=== PATIENT | male | born 1940 | race Caucasian/White ===

== ENCOUNTER 2017-10-28 19:04 | Inpatient (IN) | payer OTHER ==
[~2017-10-28] VITALS: Ht 177.8 cm; Wt 109.6 kg
[~2017-10-28 19:04] MED LIST: ADULT LOW DOSE81 M1 PO; ADVAIR 250/501 DISK IH; CEFTIN500 MG PO; CENTRUM SILVER1 EAC3 PO; FLOMAX0.4 MG PO; IRON325 M1 PO; LIPITOR20 MG PO; NORVASC10 MG PO; NORVASC5 MG PO; OMEPRAZOLE40 M1 PO; PRILOSEC40 MG PO; SPIRIVA1 INHALATI IH; SYNTHROID100 MCG PO; TOPROL XL25 MG PO; TOPROL XL6.25 MG PO; VENTOLIN HFA18 GM IH; ZITHROMAX500 MG PO
[2017-10-28 21:23] LABS: HEMATOCRIT 29.2 % (38.0-50.0); HEMOGLOBIN 8.9 G/DL (12.5-16.6); MCH 22.3 PG (29.0-34.0); MCHC 30.5 G/DL (30.0-36.0); MCV 73.2 FL (86-99); PLATELET COUNT 293 K/uL (156-360); RBC DIS.WIDTH-CV 23.1 % (11.8-14.6); RBC DIS.WIDTH-SD 57.6 % (39-53); RED BLOOD COUNT 3.99 M/uL (4.00-5.50); WHITE BLOOD COUNT 8.5 K/uL (4.1-10.2)
[2017-10-28 21:27] LABS: ALBUMIN 3.4 g/dL (3.2-4.8)
[2017-10-28 21:28] LABS: CHLORIDE 101 mEq/L (99-109); SODIUM 135 mEq/L (136-147)
[2017-10-28 21:30] LABS: GLUCOSE 106 mg/dL (70-99); TOTAL PROTEIN 6.1 g/dL (6.4-8.3)
[2017-10-28 21:32] LABS: TOTAL BILIRUBIN 0.6 mg/dL (0.0-1.0)
[2017-10-28 21:33] LABS: ALKALINE PHOSPHATASE 87 IU/L (3-129)
[2017-10-28 21:34] LABS: CREATININE 0.7 mg/dL (0.6-1.3); GFR ESTIMATE (CALCULATED) > 59 mL/min/ (58.99-99999)
[2017-10-28 21:35] LABS: AST (GOT) 29 IU/L (2-34); TROP-I INTERPRETATION NEGATIVE; TROPONIN-I < 0.01 ng/mL (0.0-0.30); UREA NITROGEN (BUN) 11 mg/dL (9-23)
[2017-10-28 21:37] LABS: ALT (GPT) 34 IU/L (3-49)
[2017-10-28 22:03] LABS: ABS NEUTROPHIL COUNT 7.1; ANISOCYTOSIS 2+; ATYPICAL LYMPHOCYTE 0.9 %; EOSINOPHIL ABS CT 0.1; EOSINOPHILS 0.9 % (0-5.0); HYPOCHROMASIA 2+; LYMPHOCYTES 2.8 % (15.0-45.0); METAMYELOCYTES 0.9 %; MICROCYTOSIS 2+; OVALOCYTES 1+; PLAT.SUFFICIENCY ADEQUATE; POIKILOCYTOSIS 1+; POLYCHROMASIA 1+
[2017-10-28 22:05] LABS: BAND NEUTROPHILS 40.4 % (0-8.0); SEG.NEUTROPHILS 43.1 % (46.0-76.0)
[2017-10-28] MEDS ORDERED: VENTOLIN HFA18 GM IH (22:44)
[2017-10-28] MEDS ORDERED: VOLTAREN 1% GE100 GM TP (22:45)
[2017-10-28] MEDS ORDERED: METFORMIN HCL500 MG PO (22:45)
[2017-10-28] MEDS ORDERED: HYDROCODON-ACE1 EAC7 PO (22:46)
[2017-10-29 01:10] LABS: APPEARANCE CLEAR ((CLEAR)); BILIRUBIN NEGATIVE; BLOOD NEGATIVE; COLOR YELLOW ((YELLOW)); GLUCOSE (STRIP) NEGATIVE; KETONES NEGATIVE; LEUKOCYTES NEGATIVE; NITRITE NEGATIVE; PROTEIN (STRIP) 30; SPECIFIC GRAVITY 1.016 (1.000-1.030); UCUL ADDED? NO
[2017-10-29 01:49] VITALS: BP 114/54
[2017-10-29 04:40] VITALS: BP 127/60
[2017-10-29 06:37] LABS: HEMATOCRIT 27.9 % (38.0-50.0); HEMOGLOBIN 8.3 G/DL (12.5-16.6); MCH 22.1 PG (29.0-34.0); MCHC 29.7 G/DL (30.0-36.0); MCV 74.4 FL (86-99); PLATELET COUNT 245 K/uL (156-360); RBC DIS.WIDTH-CV 23.2 % (11.8-14.6); RBC DIS.WIDTH-SD 61.2 % (39-53); RED BLOOD COUNT 3.75 M/uL (4.00-5.50); WHITE BLOOD COUNT 8.4 K/uL (4.1-10.2)
[2017-10-29 06:46] LABS: CHLORIDE 102 MEQ/L (99-109); CREATININE 0.8 MG/DL (0.6-1.3); GFR ESTIMATE (CALCULATED) > 59 mL/min/ (58.99-99999); GLUCOSE 99 mg/dL (70-99); SODIUM 135 MEQ/L (136-147); UREA NITROGEN (BUN) 10 mg/dL (9-23)
[2017-10-29 08:18] VITALS: BP 129/58
[2017-10-29 11:34] VITALS: BP 140/67
[2017-10-29 15:44] VITALS: BP 150/67
[2017-10-29 18:24] LABS: INTER. NORMALIZED RATIO 1.4
[2017-10-29 20:26] VITALS: BP 104/52
[2017-10-30] VITALS (7 sets, daily range): BP systolic 112–156; BP diastolic 54–74
[2017-10-30 09:25] LABS: HEMATOCRIT 27.9 % (38.0-50.0); HEMOGLOBIN 8.1 G/DL (12.5-16.6); MCH 21.5 PG (29.0-34.0); MCV 74.2 FL (86-99); PLATELET COUNT 257 K/uL (156-360); RBC DIS.WIDTH-CV 22.9 % (11.8-14.6); RBC DIS.WIDTH-SD 60.5 % (39-53); RED BLOOD COUNT 3.76 M/uL (4.00-5.50); WHITE BLOOD COUNT 9.8 K/uL (4.1-10.2)
[2017-10-30 09:45] LABS: ABS NEUTROPHIL COUNT 8.5; ANISOCYTOSIS 2+; EOSINOPHIL ABS CT 0.1; EOSINOPHILS 0.9 % (0-5.0); LYMPHOCYTES 3.5 % (15.0-45.0); MICROCYTOSIS 1+; MONOCYTES 8.7 % (0-9.0); PLAT.SUFFICIENCY ADEQUATE; POIKILOCYTOSIS 1+
[2017-10-30 09:56] LABS: BAND NEUTROPHILS 1.7 % (0-8.0); SEG.NEUTROPHILS 85.2 % (46.0-76.0)
[2017-10-31] VITALS (7 sets, daily range): BP systolic 128–172; BP diastolic 59–81
[2017-10-31 07:33] LABS: HEMATOCRIT 27.5 % (38.0-50.0); MCH 21.6 PG (29.0-34.0); MCHC 29.1 G/DL (30.0-36.0); MCV 74.1 FL (86-99); PLATELET COUNT 260 K/uL (156-360); RBC DIS.WIDTH-CV 23.2 % (11.8-14.6); RBC DIS.WIDTH-SD 61.2 % (39-53); RED BLOOD COUNT 3.71 M/uL (4.00-5.50); WHITE BLOOD COUNT 8.5 K/uL (4.1-10.2)
[2017-10-31 09:15] LABS: ABS NEUTROPHIL COUNT 7.3; ANISOCYTOSIS 2+; ATYPICAL LYMPHOCYTE 2.6 %; BAND NEUTROPHILS 0.9 % (0-8.0); EOSINOPHIL ABS CT 0; LYMPHOCYTES 3.5 % (15.0-45.0); MICROCYTOSIS 2+; MONOCYTES 7.8 % (0-9.0); OVALOCYTES 1+; PLAT.SUFFICIENCY ADEQUATE; POIKILOCYTOSIS 1+; SEG.NEUTROPHILS 85.2 % (46.0-76.0); SMUDGE CELLS 2.6; TEAR DROP CELLS 1+
[2017-11-01 03:24] VITALS: BP 123/58
[2017-11-01 06:22] LABS: HEMATOCRIT 27.7 % (38.0-50.0); HEMOGLOBIN 8.3 G/DL (12.5-16.6); MCH 22.1 PG (29.0-34.0); MCV 73.9 FL (86-99); PLATELET COUNT 270 K/uL (156-360); RBC DIS.WIDTH-CV 23.2 % (11.8-14.6); RBC DIS.WIDTH-SD 61.1 % (39-53); RED BLOOD COUNT 3.75 M/uL (4.00-5.50); WHITE BLOOD COUNT 7.6 K/uL (4.1-10.2)
[2017-11-01 06:24] LABS: CHLORIDE 104 MEQ/L (99-109); CREATININE 0.7 MG/DL (0.6-1.3); GFR ESTIMATE (CALCULATED) > 59 mL/min/ (58.99-99999); GLUCOSE 107 mg/dL (70-99); POTASSIUM 3.8 MEQ/L (3.7-5.4); SODIUM 139 MEQ/L (136-147); UREA NITROGEN (BUN) 11 mg/dL (9-23)
[2017-11-01 06:59] LABS: ABS NEUTROPHIL COUNT 6.6; ANISOCYTOSIS 1+; EOSINOPHIL ABS CT 0; HYPOCHROMASIA 1+; LYMPHOCYTES 4.3 % (15.0-45.0); MICROCYTOSIS 1+; MONOCYTES 8.7 % (0-9.0); NUCLEATED RBC'S 0.9; OVALOCYTES 1+; PLAT.SUFFICIENCY ADEQUATE; POIKILOCYTOSIS 1+; SMUDGE CELLS 1.7
[2017-11-01 08:03] VITALS: BP 124/65
[2017-11-01 11:37] VITALS: BP 130/65
[2017-11-01 15:34] VITALS: BP 132/64
[2017-11-01 19:55] VITALS: BP 139/65
[2017-11-02 00:06] VITALS: BP 113/56
[2017-11-02 04:15] VITALS: BP 134/62
[2017-11-02 06:20] LABS: HEMATOCRIT 28.2 % (38.0-50.0); HEMOGLOBIN 8.4 G/DL (12.5-16.6); MCH 21.8 PG (29.0-34.0); MCHC 29.8 G/DL (30.0-36.0); MCV 73.2 FL (86-99); PLATELET COUNT 286 K/uL (156-360); RBC DIS.WIDTH-CV 23.3 % (11.8-14.6); RED BLOOD COUNT 3.85 M/uL (4.00-5.50); WHITE BLOOD COUNT 9.3 K/uL (4.1-10.2)
[2017-11-02 07:02] LABS: ABS NEUTROPHIL COUNT 8.3; ANISOCYTOSIS 2+; ATYPICAL LYMPHOCYTE 2.6 %; BAND NEUTROPHILS 8.6 % (0-8.0); EOSINOPHIL ABS CT 0.1; EOSINOPHILS 0.9 % (0-5.0); HYPOCHROMASIA 2+; LYMPHOCYTES 2.6 % (15.0-45.0); MACROCYTES 1+; METAMYELOCYTES 0.9 %; MICROCYTOSIS 1+; MONOCYTES 3.4 % (0-9.0); OVALOCYTES 1+; PLAT.SUFFICIENCY ADEQUATE; POIKILOCYTOSIS 1+; POLYCHROMASIA 1+
[2017-11-02 07:30] VITALS: BP 144/66
[2017-11-02 11:00] VITALS: BP 136/68
[2017-11-02] MEDS ORDERED: CEFTIN500 MG PO (15:06)
== END 2017-11-02 16:20 | disposition home or self-care (01) | DRG 391 ==
LOC: EME 19:04 → EDOF 23:07 → 5EAST 23:07 → ENRESERV 23:09 → EDOF 23:55 → 5EAST 23:55 → ENRESERV 23:58 → 5EAST 10-29 01:01
PROVIDERS: Emergency Medicine; Hospitalist; Internal Medicine; Surgery
PROC: 0DBW3ZX Excision of Peritoneum, Percutaneous Approach, Diagnostic (ICD-10-PCS; principal; 2017-10-30)
DX: R19.03 Right lower quadrant abdominal swelling, mass and lump (principal); J44.0 Chronic obstructive pulmonary disease with (acute) lower respiratory infection; J18.9 Pneumonia, unspecified organism; J90 Pleural effusion, not elsewhere classified; R18.8 Other ascites; J96.01 Acute respiratory failure with hypoxia; E86.0 Dehydration; E87.1 Hypo-osmolality and hyponatremia; D50.9 Iron deficiency anemia, unspecified; E03.9 Hypothyroidism, unspecified; E11.22 Type 2 diabetes mellitus with diabetic chronic kidney disease; E78.5 Hyperlipidemia, unspecified; G89.29 Other chronic pain; M54.9 Dorsalgia, unspecified; I12.9 Hypertensive chronic kidney disease with stage 1 through stage 4 chronic kidney disease, or unspecified chronic kidney disease; N18.9 Chronic kidney disease, unspecified; K21.9 Gastro-esophageal reflux disease without esophagitis; K59.00 Constipation, unspecified; N40.0 Benign prostatic hyperplasia without lower urinary tract symptoms; D68.9 Coagulation defect, unspecified; E66.9 Obesity, unspecified; Z68.34 Body mass index [BMI] 34.0-34.9, adult; Z85.71 Personal history of Hodgkin lymphoma; Z79.82 Long term (current) use of aspirin; Z87.891 Personal history of nicotine dependence; Z90.49 Acquired absence of other specified parts of digestive tract; Z90.5 Acquired absence of kidney; Z95.3 Presence of xenogenic heart valve
CPT/HCPCS: 71046; 71250; 71275; 74176; 77012; 80048; 80053; 81003; 82948; 83605; 83615; 83880; 84145 90; 84484; 85025; 85027; 85379; 85610; 85730; 86850; 86900; 86901; 87040; 87502; 88305; 88341 TC; 88342 TC; 93005; 93306; 94640; 94640 76; 94760; 94799; 99202; 99281; 99285; J0456; J0696; J1644; J1756; J1815; J3480; J7030; J7050

== ENCOUNTER 2017-11-09 11:11 | Inpatient (IN) | payer OTHER ==
[~2017-11-09] VITALS: Ht 177.8 cm; Wt 110.0 kg
[~2017-11-09 11:11] MED LIST changes: +HYDROCODON-ACE1 EAC7 PO; +METFORMIN HCL500 MG PO; +VOLTAREN 1% GE100 GM TP
[2017-11-09 12:22] LABS: APPEARANCE CLEAR ((CLEAR)); BILIRUBIN NEGATIVE; BLOOD NEGATIVE; COLOR YELLOW ((YELLOW)); GLUCOSE (STRIP) NEGATIVE; KETONES NEGATIVE; LEUKOCYTES NEGATIVE; NITRITE NEGATIVE; PROTEIN (STRIP) NEGATIVE; SPECIFIC GRAVITY 1.017 (1.000-1.030); UROBILINOGEN 0.2 MG/DL (0.2-1.0)
[2017-11-09 12:52] LABS: HEMATOCRIT 27.4 % (38.0-50.0); HEMOGLOBIN 8.7 G/DL (12.5-16.6); MCH 23.3 PG (29.0-34.0); MCHC 31.8 G/DL (30.0-36.0); MCV 73.5 FL (86-99); PLATELET COUNT 321 K/uL (156-360); RBC DIS.WIDTH-CV 25.4 % (11.8-14.6); RBC DIS.WIDTH-SD 65.7 % (39-53); RED BLOOD COUNT 3.73 M/uL (4.00-5.50); WHITE BLOOD COUNT 15.9 K/uL (4.1-10.2)
[2017-11-09 12:59] LABS: ALBUMIN 2.9 g/dL (3.2-4.8)
[2017-11-09 13:00] LABS: CHLORIDE 101 mEq/L (99-109); POTASSIUM 4.3 mEq/L (3.7-5.4); SODIUM 135 mEq/L (136-147)
[2017-11-09 13:02] LABS: GLUCOSE 105 mg/dL (70-99)
[2017-11-09 13:04] LABS: TOTAL BILIRUBIN 0.5 mg/dL (0.0-1.0)
[2017-11-09 13:05] LABS: ALKALINE PHOSPHATASE 114 IU/L (3-129)
[2017-11-09 13:06] LABS: CREATININE 0.8 mg/dL (0.6-1.3); GFR ESTIMATE (CALCULATED) > 59 mL/min/ (58.99-99999)
[2017-11-09 13:07] LABS: AST (GOT) 35 IU/L (2-34); UREA NITROGEN (BUN) 15 mg/dL (9-23)
[2017-11-09 13:08] LABS: ALT (GPT) 35 IU/L (3-49)
[2017-11-09 13:11] LABS: TROP-I INTERPRETATION NEGATIVE; TROPONIN-I < 0.01 ng/mL (0.0-0.30)
[2017-11-09] MEDS ORDERED: NORVASC10 MG PO (16:04)
[2017-11-09] MEDS ORDERED: VOLTAREN 1% GE100 GM TP (16:06)
[2017-11-09] MEDS ORDERED: VENTOLIN HFA18 GM IH (16:09)
[2017-11-09 19:57] VITALS: BP 126/61
[2017-11-09 22:44] VITALS: BP 140/72
[2017-11-10] VITALS (7 sets, daily range): BP systolic 112–140; BP diastolic 61–69
[2017-11-10 07:14] LABS: CHLORIDE 98 MEQ/L (99-109); CREATININE 0.7 MG/DL (0.6-1.3); GFR ESTIMATE (CALCULATED) > 59 mL/min/ (58.99-99999); GLUCOSE 133 mg/dL (70-99); POTASSIUM 4.3 MEQ/L (3.7-5.4); SODIUM 133 MEQ/L (136-147); UREA NITROGEN (BUN) 16 mg/dL (9-23)
[2017-11-10 07:24] LABS: HEMATOCRIT 27.1 % (38.0-50.0); HEMOGLOBIN 8.2 G/DL (12.5-16.6); MCH 22.6 PG (29.0-34.0); MCHC 30.3 G/DL (30.0-36.0); MCV 74.7 FL (86-99); PLATELET COUNT 335 K/uL (156-360); RBC DIS.WIDTH-CV 25.2 % (11.8-14.6); RBC DIS.WIDTH-SD 66.9 % (39-53); RED BLOOD COUNT 3.63 M/uL (4.00-5.50); WHITE BLOOD COUNT 10.1 K/uL (4.1-10.2)
[2017-11-10 12:26] LABS: TYPE OF FLUID PLEURAL
[2017-11-10 12:47] LABS: APPEARANCE CLOUDY-BLOODY; BODY FLUID RBC'S 290000 /MM^3 (0-100); BODY FLUID WBC'S 4745 /MM^3 (0-500)
[2017-11-10 13:05] LABS: BODY FLUID GLUCOSE 153 MG/DL; BODY FLUID LDH 498 IU/L; BODY FLUID PROTEIN 3.4 G/DL
[2017-11-10 13:46] LABS: BODY FLUID EOSINOPHILS 0 % (0-25); MONONUCLEAR WBC'S 76 %; POLYNUCLEAR WBC'S 24 % (0-25)
[2017-11-11] VITALS (7 sets, daily range): BP systolic 111–141; BP diastolic 53–81
[2017-11-11 06:20] LABS: HEMATOCRIT 25.6 % (38.0-50.0); HEMOGLOBIN 7.6 G/DL (12.5-16.6); MCH 22.3 PG (29.0-34.0); MCHC 29.7 G/DL (30.0-36.0); MCV 75.1 FL (86-99); PLATELET COUNT 358 K/uL (156-360); RBC DIS.WIDTH-CV 25.3 % (11.8-14.6); RBC DIS.WIDTH-SD 66.7 % (39-53); RED BLOOD COUNT 3.41 M/uL (4.00-5.50); WHITE BLOOD COUNT 9.8 K/uL (4.1-10.2)
[2017-11-11 06:48] LABS: CHLORIDE 103 MEQ/L (99-109); CREATININE 0.7 MG/DL (0.6-1.3); GFR ESTIMATE (CALCULATED) > 59 mL/min/ (58.99-99999); SODIUM 138 MEQ/L (136-147); UREA NITROGEN (BUN) 18 mg/dL (9-23); URIC ACID 5.4 mg/dL (3.1-9.2)
[2017-11-11 06:49] LABS: GLUCOSE 94 mg/dL (70-99)
[2017-11-11 07:14] LABS: ABS NEUTROPHIL COUNT 9.4; ANISOCYTOSIS 1+; EOSINOPHIL ABS CT 0; HYPOCHROMASIA 1+; LYMPHOCYTES 0.9 % (15.0-45.0); MICROCYTOSIS 1+; MONOCYTES 3.4 % (0-9.0); NUCLEATED RBC'S 0.9; OVALOCYTES 1+; PLAT.SUFFICIENCY DECREASED; POIKILOCYTOSIS 2+; POLYCHROMASIA 1+; SCHISTOCYTES 1+; SEG.NEUTROPHILS 95.7 % (46.0-76.0)
[2017-11-11 11:13] LABS: TYPE OF FLUID PARACENTESIS
[2017-11-11 11:30] LABS: APPEARANCE CLOUDY-BLOODY; BODY FLUID RBC'S 192000 /MM^3 (0-100); BODY FLUID WBC'S 5233 /MM^3 (0-500)
[2017-11-11 12:06] LABS: BODY FLUID GLUCOSE 93 MG/DL; BODY FLUID LDH 1358 IU/L; BODY FLUID PROTEIN 4.4 G/DL
[2017-11-11 12:24] LABS: BODY FLUID EOSINOPHILS 0 % (0-25); MONONUCLEAR WBC'S 47 %; POLYNUCLEAR WBC'S 53 % (0-25)
[2017-11-11 12:25] LABS: COMMENT FEW MACROPHAGES
[2017-11-11 12:36] LABS: HEMATOCRIT 25.4 % (38.0-50.0); HEMOGLOBIN 7.7 G/DL (12.5-16.6); MCV 75.1 FL (86-99)
[2017-11-11 22:06] LABS: BODY FLUID PH 7.8 (())
[2017-11-12 03:50] VITALS: BP 124/60
[2017-11-12 06:20] LABS: HEMATOCRIT 28.8 % (38.0-50.0); HEMOGLOBIN 8.3 G/DL (12.5-16.6); MCHC 28.8 G/DL (30.0-36.0); MCV 76.4 FL (86-99); PLATELET COUNT 396 K/uL (156-360); RBC DIS.WIDTH-CV 25.6 % (11.8-14.6); RBC DIS.WIDTH-SD 69.5 % (39-53); RED BLOOD COUNT 3.77 M/uL (4.00-5.50); WHITE BLOOD COUNT 8.9 K/uL (4.1-10.2)
[2017-11-12 06:43] LABS: CHLORIDE 104 MEQ/L (99-109); CREATININE 0.7 MG/DL (0.6-1.3); GFR ESTIMATE (CALCULATED) > 59 mL/min/ (58.99-99999); GLUCOSE 85 mg/dL (70-99); SODIUM 139 MEQ/L (136-147); UREA NITROGEN (BUN) 12 mg/dL (9-23)
[2017-11-12 06:47] LABS: ABS NEUTROPHIL COUNT 7.8; ANISOCYTOSIS 1+; EOSINOPHIL ABS CT 0.2; EOSINOPHILS 1.8 % (0-5.0); HYPOCHROMASIA 1+; LYMPHOCYTES 3.5 % (15.0-45.0); MICROCYTOSIS 1+; PLAT.SUFFICIENCY INCREASED; POIKILOCYTOSIS 1+; SEG.NEUTROPHILS 87.7 % (46.0-76.0)
[2017-11-12 07:15] VITALS: BP 121/56
[2017-11-12 09:12] LABS: UR CREATININE CONCENTRATION 162.7 MG/DL
[2017-11-12 11:00] VITALS: BP 121/58
[2017-11-12 13:40] LABS: CREATININE 0.7 MG/DL (0.6-1.3)
[2017-11-12 15:00] VITALS: BP 113/56
[2017-11-12 19:30] VITALS: BP 124/58
[2017-11-13] VITALS: BP 112/58
[2017-11-13 06:46] LABS: HEMATOCRIT 30.8 % (38.0-50.0); HEMOGLOBIN 8.9 G/DL (12.5-16.6); MCH 22.4 PG (29.0-34.0); MCHC 28.9 G/DL (30.0-36.0); MCV 77.4 FL (86-99); PLATELET COUNT 384 K/uL (156-360); RBC DIS.WIDTH-CV 25.5 % (11.8-14.6); RBC DIS.WIDTH-SD 68.8 % (39-53); RED BLOOD COUNT 3.98 M/uL (4.00-5.50); WHITE BLOOD COUNT 9.4 K/uL (4.1-10.2)
[2017-11-13 07:05] LABS: CHLORIDE 103 MEQ/L (99-109); CREATININE 0.7 MG/DL (0.6-1.3); GFR ESTIMATE (CALCULATED) > 59 mL/min/ (58.99-99999); GLUCOSE 90 mg/dL (70-99); SODIUM 137 MEQ/L (136-147); UREA NITROGEN (BUN) 9 mg/dL (9-23)
[2017-11-13 07:19] LABS: ABS NEUTROPHIL COUNT 7.7; ANISOCYTOSIS 2+; ATYPICAL LYMPHOCYTE 1.7 %; BAND NEUTROPHILS 1.7 % (0-8.0); EOSINOPHIL ABS CT 0.1; EOSINOPHILS 0.9 % (0-5.0); HYPOCHROMASIA 1+; LYMPHOCYTES 2.6 % (15.0-45.0); MICROCYTOSIS 2+; MONOCYTES 12.9 % (0-9.0); OVALOCYTES 1+; PLAT.SUFFICIENCY INCREASED; POIKILOCYTOSIS 1+; POLYCHROMASIA 1+; SEG.NEUTROPHILS 80.2 % (46.0-76.0); SMUDGE CELLS 1.7
[2017-11-13 07:45] VITALS: BP 119/59
[2017-11-13] MEDS ORDERED: LEVAQUIN750 MG PO (11:33)
[2017-11-13] MEDS ORDERED: TAMSULOSIN HCL0.4 MG PO (11:33)
[2017-11-13 21:46] LABS: BODY FLUID PH 7.7 (())
== END 2017-11-13 15:05 | disposition home health service (06) | DRG 697 ==
LOC: EME 11:11 → 5EAST 15:26 → EDOF 15:26 → ENRESERV 15:34 → 5EAST 19:18
PROVIDERS: Emergency Medicine; Internal Medicine; Radiology Diagnostic Radiology
PROC: 0W9G3ZZ Drainage of Peritoneal Cavity, Percutaneous Approach (ICD-10-PCS; principal; 2017-11-11)
DX: N35.9 Urethral stricture, unspecified (principal); N40.1 Benign prostatic hyperplasia with lower urinary tract symptoms; J90 Pleural effusion, not elsewhere classified; R33.8 Other retention of urine; J44.1 Chronic obstructive pulmonary disease with (acute) exacerbation; J44.0 Chronic obstructive pulmonary disease with (acute) lower respiratory infection; J98.11 Atelectasis; R91.1 Solitary pulmonary nodule; E11.22 Type 2 diabetes mellitus with diabetic chronic kidney disease; N28.1 Cyst of kidney, acquired; R18.8 Other ascites; C85.90 Non-Hodgkin lymphoma, unspecified, unspecified site; I50.9 Heart failure, unspecified; E03.9 Hypothyroidism, unspecified; D63.8 Anemia in other chronic diseases classified elsewhere; K59.00 Constipation, unspecified; E83.51 Hypocalcemia; E78.5 Hyperlipidemia, unspecified; J18.9 Pneumonia, unspecified organism; I25.10 Atherosclerotic heart disease of native coronary artery without angina pectoris; K21.9 Gastro-esophageal reflux disease without esophagitis; E66.9 Obesity, unspecified; R09.02 Hypoxemia; K12.30 Oral mucositis (ulcerative), unspecified; N18.3 Chronic kidney disease, stage 3 (moderate); I12.9 Hypertensive chronic kidney disease with stage 1 through stage 4 chronic kidney disease, or unspecified chronic kidney disease; G89.29 Other chronic pain; Z79.82 Long term (current) use of aspirin; Z85.71 Personal history of Hodgkin lymphoma; Z87.891 Personal history of nicotine dependence; Z99.81 Dependence on supplemental oxygen; Z68.34 Body mass index [BMI] 34.0-34.9, adult; Z95.2 Presence of prosthetic heart valve; Z79.899 Other long term (current) drug therapy; Z90.5 Acquired absence of kidney; Z79.84 Long term (current) use of oral hypoglycemic drugs; Z90.79 Acquired absence of other genital organ(s)
CPT/HCPCS: 49083; 71046; 71275; 74177; 76942; 80048; 80053; 81003; 81050; 82575; 82945; 82948; 83615 91; 83986 90; 84157; 84484; 84520; 84550; 85014; 85018; 85025; 85027; 86850; 86900; 86901; 87040; 87070; 87075; 87205; 88108; 88305; 89051; 93005; 94640; 94640 76; 94799; 99202; 99281; 99285; J0456; J0610; J0696; J1650; J1756; J7030; J7050; J7512

== ENCOUNTER → 2017-11-17 | Outpatient (CLI) | payer OTHER ==
[~2017-11-17] MED LIST changes: +LEVAQUIN750 MG PO; +TAMSULOSIN HCL0.4 MG PO
== END | disposition home or self-care (01) ==
LOC: RAD 13:30
PROC: 0W9G3ZZ Drainage of Peritoneal Cavity, Percutaneous Approach (ICD-10-PCS; principal; 2017-11-17)
DX: R18.8 Other ascites (principal); C7A.1 Malignant poorly differentiated neuroendocrine tumors
CPT/HCPCS: 49083

== ENCOUNTER 2017-12-05 10:26 | Inpatient (IN) | payer OTHER ==
[~2017-12-05] VITALS: Ht 175.3 cm; Wt 103.7 kg
[2017-12-05 11:30] LABS: HEMATOCRIT 29.2 % (38.0-50.0); HEMOGLOBIN 8.9 G/DL (12.5-16.6); MCH 24.7 PG (29.0-34.0); MCHC 30.5 G/DL (30.0-36.0); MCV 80.9 FL (86-99); NRBC (%) 0.3 /100 WBC (0-0); PLATELET COUNT 280 K/uL (156-360); RBC DIS.WIDTH-CV 29.1 % (11.8-14.6); RBC DIS.WIDTH-SD 82.1 % (39-53); RED BLOOD COUNT 3.61 M/uL (4.00-5.50); WHITE BLOOD COUNT 15.3 K/uL (4.1-10.2)
[2017-12-05 11:35] LABS: INTER. NORMALIZED RATIO 1.3
[2017-12-05 11:42] LABS: CHLORIDE 103 mEq/L (99-109); POTASSIUM 3.7 mEq/L (3.7-5.4); SODIUM 139 mEq/L (136-147)
[2017-12-05 11:44] LABS: GLUCOSE 82 mg/dL (70-99); TOTAL PROTEIN 5.5 g/dL (6.4-8.3)
[2017-12-05 11:45] LABS: CARBON DIOXIDE (BICARBONATE) 30.5 MEQ/L (20-31)
[2017-12-05 11:46] LABS: TOTAL BILIRUBIN 0.3 mg/dL (0.0-1.0)
[2017-12-05 11:48] LABS: ALKALINE PHOSPHATASE 159 IU/L (3-129); CREATININE 0.6 mg/dL (0.6-1.3); GFR ESTIMATE (CALCULATED) > 59 mL/min/ (58.99-99999)
[2017-12-05 11:49] LABS: UREA NITROGEN (BUN) 6 mg/dL (9-23)
[2017-12-05 11:50] LABS: AST (GOT) 23 IU/L (2-34)
[2017-12-05 11:51] LABS: ALT (GPT) 22 IU/L (3-49); TROP-I INTERPRETATION NEGATIVE; TROPONIN-I < 0.01 ng/mL (0.0-0.30)
[2017-12-05 12:30] LABS: ABS NEUTROPHIL COUNT 14.2; ANISOCYTOSIS 2+; BAND NEUTROPHILS 11.3 % (0-8.0); EOSINOPHIL ABS CT 0; LYMPHOCYTES 0.9 % (15.0-45.0); METAMYELOCYTES 1.7 %; MICROCYTOSIS 1+; MONOCYTES 4.3 % (0-9.0); OVALOCYTES 1+; PLAT.SUFFICIENCY ADEQUATE; POIKILOCYTOSIS 1+; SEG.NEUTROPHILS 81.8 % (46.0-76.0)
[2017-12-05] MEDS ORDERED: SENNA PLUS TAB1 EACH PO (14:57)
[2017-12-05] MEDS ORDERED: ULTRAM50 MG PO (14:58)
[2017-12-05 19:53] VITALS: BP 127/60
[2017-12-05 20:15] VITALS: BP 125/63
[2017-12-06 00:03] VITALS: BP 138/69
[2017-12-06 04:07] VITALS: BP 143/67
[2017-12-06 06:07] LABS: HEMATOCRIT 30.1 % (38.0-50.0); HEMOGLOBIN 8.5 G/DL (12.5-16.6); MCH 23.6 PG (29.0-34.0); MCHC 28.2 G/DL (30.0-36.0); MCV 83.6 FL (86-99); NRBC (%) 0.3 /100 WBC (0-0); PLATELET COUNT 271 K/uL (156-360); RBC DIS.WIDTH-CV 28.9 % (11.8-14.6); RBC DIS.WIDTH-SD 85.9 % (39-53); WHITE BLOOD COUNT 15.2 K/uL (4.1-10.2)
[2017-12-06 06:28] LABS: CHLORIDE 105 MEQ/L (99-109); CREATININE 0.7 MG/DL (0.6-1.3); GFR ESTIMATE (CALCULATED) > 59 mL/min/ (58.99-99999); GLUCOSE 88 mg/dL (70-99); POTASSIUM 3.5 MEQ/L (3.7-5.4); SODIUM 141 MEQ/L (136-147); UREA NITROGEN (BUN) 6 mg/dL (9-23)
[2017-12-06 06:45] LABS: ABS NEUTROPHIL COUNT 13.2; ANISOCYTOSIS 3+; BAND NEUTROPHILS 7.8 % (0-8.0); EOSINOPHIL ABS CT 0; LYMPHOCYTES 0.9 % (15.0-45.0); MACROCYTES 1+; METAMYELOCYTES 4.4 %; MICROCYTOSIS 2+; MONOCYTES 5.2 % (0-9.0); MYELOCYTES 2.6 %; OVALOCYTES 1+; PLAT.SUFFICIENCY ADEQUATE; POIKILOCYTOSIS 1+; POLYCHROMASIA 1+; SEG.NEUTROPHILS 79.1 % (46.0-76.0)
[2017-12-06 08:16] LABS: BASE EXCESS 2.8 mEq/L (-3 to +3); BICARBONATE 27.2 mEq/L (22-26); CARBOXY HGB 1.7 % (0-5); COMMENTS - BLOOD GASES A+C+; DEVICE VM; FI02 50 %; METHEMOGLOBIN 1.1 % (0-1.5); O2 FLOW 12 L/MIN; PCO2 40 mm Hg (35-45); PO2 60 mm Hg (80-100); SITE RR; TOTAL RESP RATE 24 resp/min; pH 7.44 (7.35-7.45)
[2017-12-06 08:39] VITALS: BP 163/67
[2017-12-06 10:25] LABS: TYPE OF FLUID PLEURAL
[2017-12-06 10:56] LABS: BODY FLUID GLUCOSE 106 MG/DL; BODY FLUID LDH 480 IU/L; BODY FLUID PROTEIN 3.3 G/DL
[2017-12-06 11:12] LABS: APPEARANCE CLOUDY-BLOODY; BODY FLUID EOSINOPHILS 0 % (0-25); BODY FLUID RBC'S 48000 /MM^3 (0-100); BODY FLUID WBC'S 1675 /MM^3 (0-500); MONONUCLEAR WBC'S 81 %; POLYNUCLEAR WBC'S 19 % (0-25)
[2017-12-06 11:46] VITALS: BP 134/64
[2017-12-06 12:06] LABS: GLUCOSE 94 mg/dL (70-99); LACTATE DEHYDROGENASE 505 IU/L (20-246); TOTAL PROTEIN 5.7 G/DL (6.4-8.3)
[2017-12-06 15:55] VITALS: BP 124/58
[2017-12-06 23:03] VITALS: BP 141/66
[2017-12-07 06:35] LABS: CREATININE 0.6 MG/DL (0.6-1.3); GFR ESTIMATE (CALCULATED) > 59 mL/min/ (58.99-99999); UREA NITROGEN (BUN) 7 mg/dL (9-23)
[2017-12-07 07:23] LABS: HEMATOCRIT 27.7 % (38.0-50.0); HEMOGLOBIN 8.2 G/DL (12.5-16.6); MCH 24.5 PG (29.0-34.0); MCHC 29.6 G/DL (30.0-36.0); MCV 82.7 FL (86-99); PLATELET COUNT 281 K/uL (156-360); RBC DIS.WIDTH-CV 28.7 % (11.8-14.6); RBC DIS.WIDTH-SD 85.4 % (39-53); RED BLOOD COUNT 3.35 M/uL (4.00-5.50); WHITE BLOOD COUNT 16.3 K/uL (4.1-10.2)
[2017-12-07 07:26] VITALS: BP 131/67
[2017-12-07 07:36] LABS: CHLORIDE 105 MEQ/L (99-109); GLUCOSE 130 mg/dL (70-99); POTASSIUM 3.5 MEQ/L (3.7-5.4); SODIUM 142 MEQ/L (136-147)
[2017-12-07 12:03] VITALS: BP 153/69
[2017-12-07 16:23] VITALS: BP 136/63
[2017-12-07 19:33] VITALS: BP 148/67
[2017-12-07 23:19] VITALS: BP 139/67
[2017-12-08 04:00] VITALS: BP 119/57
[2017-12-08 06:09] LABS: HEMATOCRIT 27.8 % (38.0-50.0); HEMOGLOBIN 8.2 G/DL (12.5-16.6); MCH 24.6 PG (29.0-34.0); MCHC 29.5 G/DL (30.0-36.0); MCV 83.2 FL (86-99); NRBC (%) 0.1 /100 WBC (0-0); PLATELET COUNT 254 K/uL (156-360); RBC DIS.WIDTH-CV 29.3 % (11.8-14.6); RBC DIS.WIDTH-SD 87.1 % (39-53); RED BLOOD COUNT 3.34 M/uL (4.00-5.50); WHITE BLOOD COUNT 21.6 K/uL (4.1-10.2)
[2017-12-08 06:34] LABS: CHLORIDE 106 MEQ/L (99-109); CREATININE 0.6 MG/DL (0.6-1.3); GFR ESTIMATE (CALCULATED) > 59 mL/min/ (58.99-99999); GLUCOSE 116 mg/dL (70-99); POTASSIUM 4.1 MEQ/L (3.7-5.4); SODIUM 143 MEQ/L (136-147); UREA NITROGEN (BUN) 8 mg/dL (9-23)
[2017-12-08 08:00] VITALS: BP 133/65
[2017-12-08 11:46] LABS: TYPE OF FLUID PLEURAL
[2017-12-08 11:48] LABS: TYPE OF FLUID PLEURAL
[2017-12-08 12:39] LABS: APPEARANCE CLOUDY-BLOODY; BODY FLUID EOSINOPHILS 0 % (0-25); BODY FLUID RBC'S 26000 /MM^3 (0-100); BODY FLUID WBC'S 1447 /MM^3 (0-500); COMMENT MANY MACROPHAGES AND MESOTHELIAL CELLS SEEN; MONONUCLEAR WBC'S 93 %; POLYNUCLEAR WBC'S 7 % (0-25)
[2017-12-08 12:42] LABS: APPEARANCE CLOUDY-BLOODY; BODY FLUID EOSINOPHILS 0 % (0-25); BODY FLUID RBC'S 15000 /MM^3 (0-100); BODY FLUID WBC'S 1812 /MM^3 (0-500); COMMENT MANY MACROPHAGES AND MESOTHELIAL CELLS SEEN; MONONUCLEAR WBC'S 85 %; POLYNUCLEAR WBC'S 15 % (0-25)
[2017-12-08 13:00] LABS: BODY FLUID GLUCOSE 150 MG/DL; BODY FLUID LDH 365 IU/L; BODY FLUID PROTEIN 3.3 G/DL
[2017-12-08 13:12] LABS: BODY FLUID GLUCOSE 155 MG/DL; BODY FLUID LDH 348 IU/L; BODY FLUID PROTEIN 3.1 G/DL
[2017-12-08 16:00] VITALS: BP 135/64
[2017-12-08 21:08] VITALS: BP 160/74
[2017-12-09 00:50] VITALS: BP 153/70
[2017-12-09 04:22] VITALS: BP 118/63
[2017-12-09 06:58] VITALS: BP 135/63
[2017-12-09 10:55] VITALS: BP 138/63
[2017-12-09 15:23] VITALS: BP 161/72
[2017-12-09 23:05] VITALS: BP 141/66
[2017-12-10 07:00] VITALS: BP 147/65
[2017-12-10 15:35] VITALS: BP 165/74
[2017-12-10] MEDS ORDERED: FUROSEMIDE40 MG PO (15:48)
[2017-12-10] MEDS ORDERED: PREDNISONE10 MG PO (15:51)
== END 2017-12-10 17:14 | disposition home or self-care (01) | DRG 843 ==
LOC: EME 10:26 → 5EAST 14:26 → EDOF 14:26 → ENRESERV 14:27 → CANRESERV 14:27 → ENRESERV 14:44 → CANRESERV 14:44 → ENRESERV 16:06 → 5EAST 19:11
PROVIDERS: Emergency Medicine; Family Medicine; Internal Medicine Pulmonary Disease; Physician Assistant
DX: C7A.1 Malignant poorly differentiated neuroendocrine tumors (principal); J91.0 Malignant pleural effusion; J96.01 Acute respiratory failure with hypoxia; J44.1 Chronic obstructive pulmonary disease with (acute) exacerbation; R18.0 Malignant ascites; K59.00 Constipation, unspecified; K21.9 Gastro-esophageal reflux disease without esophagitis; I10 Essential (primary) hypertension; E11.9 Type 2 diabetes mellitus without complications; D64.9 Anemia, unspecified; E78.5 Hyperlipidemia, unspecified; E66.9 Obesity, unspecified; Z68.33 Body mass index [BMI] 33.0-33.9, adult; J98.11 Atelectasis; Z99.81 Dependence on supplemental oxygen; Z85.71 Personal history of Hodgkin lymphoma; Z87.891 Personal history of nicotine dependence; Z90.5 Acquired absence of kidney; Z79.899 Other long term (current) drug therapy; Z95.2 Presence of prosthetic heart valve; Z79.84 Long term (current) use of oral hypoglycemic drugs; Z79.82 Long term (current) use of aspirin
CPT/HCPCS: 36415; 36600; 49083; 71045; 71046; 71250; 71275; 76942; 80048; 80053; 80202; 82565; 82803; 82945; 82947 91; 82948; 83605; 83615; 83615 91; 83880; 84145 90; 84155; 84157; 84484; 84520; 85025; 85027; 85610; 87040; 87070; 87075; 87116; 87205; 87206; 87449; 88108; 88305; 88341 TC; 88342 TC; 89051; 93005; 93970; 94640; 94640 76; 94760; 94799; 99202; 99281; 99285; J0692; J1650; J1815; J2543; J2920; J3010; J3370; J7050; J7512

== ENCOUNTER 2017-12-24 21:55 | Inpatient (IN) | payer OTHER ==
[~2017-12-24] VITALS: Ht 175.3 cm; Wt 92.8 kg
[~2017-12-24 21:55] MED LIST changes: +FUROSEMIDE40 MG PO; +PREDNISONE10 MG PO; +SENNA PLUS TAB1 EACH PO; +ULTRAM50 MG PO
[2017-12-24 22:40] LABS: CHLORIDE 102 mEq/L (99-109); SODIUM 138 mEq/L (136-147)
[2017-12-24 22:41] LABS: HEMATOCRIT 30.9 % (38.0-50.0); HEMOGLOBIN 9.7 G/DL (12.5-16.6); MCH 27.2 PG (29.0-34.0); MCHC 31.4 G/DL (30.0-36.0); MCV 86.8 FL (86-99); NRBC (%) 0.4 /100 WBC (0-0); RBC DIS.WIDTH-CV 30.8 % (11.8-14.6); RBC DIS.WIDTH-SD 94.4 % (39-53); RED BLOOD COUNT 3.56 M/uL (4.00-5.50); WHITE BLOOD COUNT 14.8 K/uL (4.1-10.2)
[2017-12-24 22:42] LABS: GLUCOSE 107 mg/dL (70-99)
[2017-12-24 22:46] LABS: CREATININE 0.7 mg/dL (0.6-1.3); GFR ESTIMATE (CALCULATED) > 59 mL/min/ (58.99-99999); UREA NITROGEN (BUN) 11 mg/dL (9-23)
[2017-12-24 22:47] LABS: POTASSIUM 3.8 mEq/L (3.7-5.4)
[2017-12-24 22:56] LABS: PLATELET COUNT 117 K/uL (156-360)
[2017-12-25 00:18] LABS: ALBUMIN 3.7 g/dL (3.2-4.8)
[2017-12-25 00:21] LABS: TOTAL PROTEIN 6.1 g/dL (6.4-8.3)
[2017-12-25 00:23] LABS: TOTAL BILIRUBIN 0.3 mg/dL (0.0-1.0)
[2017-12-25 00:24] LABS: ALKALINE PHOSPHATASE 183 IU/L (3-129)
[2017-12-25 00:26] LABS: AST (GOT) 14 IU/L (2-34); DIRECT BILIRUBIN 0.1 mg/dL (0.0-0.3)
[2017-12-25 00:27] LABS: ALT (GPT) 18 IU/L (3-49); LIPASE 13 U/L (1.0-51.0)
[2017-12-25 00:33] LABS: TROP-I INTERPRETATION NEGATIVE; TROPONIN-I 0.01 ng/mL (0.0-0.30)
[2017-12-25] MEDS ORDERED: FLOMAX0.4 MG PO (01:02)
[2017-12-25] MEDS ORDERED: TRAMADOL HCL50 MG PO (01:03)
[2017-12-25] MEDS ORDERED: COMPAZINE10 MG PO (01:04)
[2017-12-25] MEDS ORDERED: FUROSEMIDE40 MG PO (01:04)
[2017-12-25 02:28] LABS: APPEARANCE CLEAR ((CLEAR)); BILIRUBIN NEGATIVE; BLOOD NEGATIVE; COLOR YELLOW ((YELLOW)); GLUCOSE (STRIP) NEGATIVE; KETONES NEGATIVE; LEUKOCYTES NEGATIVE; NITRITE NEGATIVE; PROTEIN (STRIP) NEGATIVE; SPECIFIC GRAVITY 1.014 (1.000-1.030); UCUL ADDED? NO; UROBILINOGEN 0.2 MG/DL (0.2-1.0)
[2017-12-25 02:44] LABS: ANISOCYTOSIS 2+; ATYPICAL LYMPHOCYTE 1.8 %; BAND NEUTROPHILS 4.5 % (0-8.0); HYPOCHROMASIA 1+; LYMPHOCYTES 5.5 % (15.0-45.0); METAMYELOCYTES 0.9 %; MICROCYTOSIS 1+; MONOCYTES 7.3 % (0-9.0); MYELOCYTES 3.6 %; OVALOCYTES 1+; POLYCHROMASIA 3+; SEG.NEUTROPHILS 76.4 % (46.0-76.0)
[2017-12-25 02:45] LABS: POIKILOCYTOSIS 1+; TEAR DROP CELLS 1+; TOX.VACUOLIZATION 1+
[2017-12-25 05:22] VITALS: BP 126/74
[2017-12-25 08:03] VITALS: BP 130/60
[2017-12-25 08:44] LABS: HEMATOCRIT 32.8 % (38.0-50.0); HEMOGLOBIN 9.9 G/DL (12.5-16.6); MCH 26.8 PG (29.0-34.0); MCHC 30.2 G/DL (30.0-36.0); MCV 88.6 FL (86-99); NRBC (%) 0.2 /100 WBC (0-0); PLATELET COUNT 101 K/uL (156-360); RBC DIS.WIDTH-CV 31.5 % (11.8-14.6); RBC DIS.WIDTH-SD 97.9 % (39-53); WHITE BLOOD COUNT 13.3 K/uL (4.1-10.2)
[2017-12-25 10:47] LABS: ABS NEUTROPHIL COUNT 10.6; ANISOCYTOSIS 2+; EOSINOPHIL ABS CT 0; MACROCYTES 1+; MICROCYTOSIS 1+; OVALOCYTES 1+; PLAT.SUFFICIENCY DECREASED; POIKILOCYTOSIS 1+
[2017-12-25 12:14] VITALS: BP 160/70
[2017-12-25 16:04] VITALS: BP 114/56
[2017-12-25 19:58] VITALS: BP 121/57
[2017-12-26] VITALS (7 sets, daily range): BP systolic 123–158; BP diastolic 57–71
[2017-12-26 07:02] LABS: HEMATOCRIT 29.3 % (38.0-50.0); HEMOGLOBIN 8.9 G/DL (12.5-16.6); MCH 26.7 PG (29.0-34.0); MCHC 30.4 G/DL (30.0-36.0); PLATELET COUNT 92 K/uL (156-360); RBC DIS.WIDTH-CV 30.5 % (11.8-14.6); RBC DIS.WIDTH-SD 95.8 % (39-53); RED BLOOD COUNT 3.33 M/uL (4.00-5.50); WHITE BLOOD COUNT 11.7 K/uL (4.1-10.2)
[2017-12-26 07:04] LABS: CHLORIDE 104 MEQ/L (99-109); CREATININE 0.7 MG/DL (0.6-1.3); GFR ESTIMATE (CALCULATED) > 59 mL/min/ (58.99-99999); GLUCOSE 118 mg/dL (70-99); POTASSIUM 3.9 MEQ/L (3.7-5.4); SODIUM 139 MEQ/L (136-147); UREA NITROGEN (BUN) 10 mg/dL (9-23)
[2017-12-26 08:00] LABS: ABS NEUTROPHIL COUNT 10.3; ANISOCYTOSIS 2+; ATYPICAL LYMPHOCYTE 0.9 %; BAND NEUTROPHILS 4.3 % (0-8.0); EOSINOPHIL ABS CT 0; LYMPHOCYTES 4.4 % (15.0-45.0); MACROCYTES 1+; METAMYELOCYTES 1.7 %; MICROCYTOSIS 2+; MONOCYTES 4.3 % (0-9.0); MYELOCYTES 0.9 %; OVALOCYTES 1+; PLAT.SUFFICIENCY DECREASED; POIKILOCYTOSIS 1+; SEG.NEUTROPHILS 83.5 % (46.0-76.0); SMUDGE CELLS 4.3
[2017-12-27 04:00] VITALS: BP 129/60
[2017-12-27 06:52] LABS: HEMOGLOBIN 9.5 G/DL (12.5-16.6); MCH 26.7 PG (29.0-34.0); MCHC 29.7 G/DL (30.0-36.0); MCV 89.9 FL (86-99); NRBC (%) 0.1 /100 WBC (0-0); PLATELET COUNT 108 K/uL (156-360); RBC DIS.WIDTH-CV 29.9 % (11.8-14.6); RBC DIS.WIDTH-SD 97.1 % (39-53); RED BLOOD COUNT 3.56 M/uL (4.00-5.50); WHITE BLOOD COUNT 18.6 K/uL (4.1-10.2)
[2017-12-27 07:05] VITALS: BP 132/79
[2017-12-27] MEDS ORDERED: LEVAQUIN750 MG PO (10:34)
[2017-12-27] MEDS ORDERED: PREDNISONE10 MG PO (10:34)
== END 2017-12-27 12:30 | disposition home health service (06) | DRG 871 ==
LOC: EME 21:55 → 5EAST 12-25 02:52 → EDOF 12-25 02:52 → ENRESERV 12-25 03:31 → 5EAST 12-25 04:52
PROVIDERS: Hospitalist; Internal Medicine
DX: A41.9 Sepsis, unspecified organism (principal); J18.9 Pneumonia, unspecified organism; Y95 Nosocomial condition; J44.0 Chronic obstructive pulmonary disease with (acute) lower respiratory infection; J96.01 Acute respiratory failure with hypoxia; J44.1 Chronic obstructive pulmonary disease with (acute) exacerbation; Z99.81 Dependence on supplemental oxygen; Z85.72 Personal history of non-Hodgkin lymphomas; E66.9 Obesity, unspecified; Z92.21 Personal history of antineoplastic chemotherapy; D64.9 Anemia, unspecified; C7A.8 Other malignant neuroendocrine tumors; Z79.899 Other long term (current) drug therapy; E03.9 Hypothyroidism, unspecified; Z87.891 Personal history of nicotine dependence; M79.89 Other specified soft tissue disorders
CPT/HCPCS: 71045; 71046; 71250; 74178; 76705; 80048; 80076; 80200; 81003; 83605; 83690; 83880; 84145 90; 84484; 85025; 85027; 87040; 87070; 87077; 87106; 87147; 87186; 87205; 87449; 87502; 87641; 92610 GN; 93005; 93970; 94640; 94640 76; 94760; 94799; 99202; 99281; 99285; J1644; J1940; J2543; J3260; J3370; J7050; J7512